=== PATIENT | male | born 1960 | race Caucasian/White ===

== ENCOUNTER 2019-10-24 20:07 | Emergency (ER) | payer MEDICAID ==
[~2019-10-24] VITALS: Ht 182.9 cm; Wt 107.2 kg
[2019-10-24 20:21] VITALS: BP 139/80; Ht 182.9 cm; Wt 107.2 kg
== END 2019-10-24 21:11 | disposition left against medical advice (07) ==
LOC: ED 20:07
DX: Z53.21 Procedure and treatment not carried out due to patient leaving prior to being seen by health care provider (principal)